=== PATIENT | male | born 1985 | race Caucasian/White ===

== ENCOUNTER 2023-12-31 09:13 | Outpatient (CLI) | payer BC, SELFPAY ==
--- OUTSIDE RECORDS SUMMARY | 2023-12-31 09:16 | XMS_ITS | Clinical Summary ---
Author Organization [email or web address] Address [place], [place] [address] Care Team Providers Care Farm Hand Name Role Phone Elise Bernstein MD Primary Care Provider Allergies No known active allergies Medications Medication Sig Dispensed Refills Start Date End Date Status hydrocortisone 1 % ointmentIndications:H emorrhoids, external Apply topically to affected area(s) 2 times daily. 1 Tube 09/14/2019 Active Active Problems No known active problems Resolved Problems Problem Noted Date Diagnosed Date Resolved Date Depression, recurrent 07/02/20162016 Depression with anxiety 09/26/201006/17 Immunizations Name Administration Dates Next Due Tdap 11/19/2011 Social History Tobacco Use Types Packs/Day Years Used Date Smoking Tobacco: Every Day Cigarettes Smokeless Tobacco: Former Chew Tobacco Cessation:Ready to Q uit: Yes; Counseling Given: Yes Alcohol Use Standard Drinks/Week Comments No 0 (1 standard drink = 0.6 oz pur e alcohol) PHQ-2 Answer Date Recorded PHQ-2 TOTAL SCORE 0 09/14/2019 Social Connections Answer Date Recorded Frequency of Communication with Friends and Fami ly Not on file 06/17/2021 Financial Resource Strain Answer Date R ecorded Difficulty of Paying Living Expenses Not on file 06/17/2021 Difficulty of Paying Living Expenses Not on file 06/17/2021 Sex and Gender Information Value Date Recorded Sex Assigned at Not on file Gender Identity Not on file Sexual Orientation Not on file Obstetrics History Last Filed Vital Signs Vital Sign Reading Time Taken Comments Blood Pressure 123/81 09/14/2019 4:34 PM CDT Pulse 69 09/14/2019 4:34 PM CDT Temperature 37.2 ??C (99 ??F) 10/25/2015 3:13 PM CDT Respiratory Rate - - Oxygen Saturation 100% 10/25/2015 3:13 PM CDT Inhaled Oxygen Concentration - - Weight 79.2 kg (174 lb 9.6 oz) 09/14/2019 4:34 P M CDT Height 172.5 cm (5' 7.91) 09/14/2019 4:34 PM CD T Body Mass Index 26.62 09/14/2019 4:34 PM CDT Plan of Treatment Health Maintenance Due Date Last Done Comments HIV for age 15-65 1999 Hepatitis C screening for age 18-79 2002 Lipids for age 35-44 2019 BMI (ht and wt on same day) for age 18+ 09/13/2020 09/14/2019, 03/31/2018, 10/10/2016, Additional history exists Depression screening for age 12+ 09/13/2020 09/14/2019, 10/10/2016, 07/02/2016, Additional history exists Tetanus booster 11/18/2021 11/19/2011 COVID-19 vaccine series ( season) 2023 Influenza for age 9-49 02/16/2024 Tdap Completed 11/19/2011 Pneumococcal series for age 6-64 Aged Out No longer eligible based on patient's age to complete this topic Care Teams Farm Hand Relationship Specialty [place] [id number] [place], [place] [phone] PCP - General Family Practice 10/25/15
== END 2023-12-31 09:14 | disposition home or self-care (01) ==
PROVIDERS: PCP Family Medicine; Visit Provider Family Medicine
DX: Z13.220 Encounter for screening for lipoid disorders (principal); Z13.1 Encounter for screening for diabetes mellitus
CPT/HCPCS: 80061; 82947

== ENCOUNTER 2024-03-19 19:51 | Emergency (ER) | payer BC, SELFPAY ==
[2024-03-19 20:10] VITALS: BP 127/78; PULSE 102; RESP 16; TEMP 36.8; O2SAT 94; BMI 27.3
--- NOTE | 2024-03-19 20:23 | CRLHL7_ITS ---
For Patients: As a result of the Cures Act, medical imaging exams and procedure reports are released immediately into your electronic medical record. You may view this report before your referring provider. If you have questions, please contact your health care provider. INDICATION: Cough. COMPARISON: None available. TECHNIQUE: 2 views. FINDINGS: Medical Devices: None. Lung Volumes: Adequate inspiration. No significant atelectasis. Lungs: Asymmetrical medial right basilar opacity on the frontal view of the chest without a definite correlate on the lateral view suspicious for pneumonia in the correct clinical setting. This could be present within the right lower lobe as there is subtle increased opacity over the lower thoracic spine on the lateral view. Short interval follow-up is suggested to document resolution in 6-8 weeks. Pleura and Pleural spaces: No significant pleural effusion. No pneumothorax. Mediastinum: Normal cardiomediastinal silhouette. Bony Thorax and Soft Tissues: No significant incidental findings. IMPRESSION: Asymmetrical medial right basilar opacity on the frontal view of the chest without a definite correlate on the lateral view suspicious for pneumonia in the correct clinical setting. This could be present within the right lower lobe as there is subtle increased opacity over the lower thoracic spine on the lateral view. Short interval follow-up is suggested to document resolution in 6-8 weeks. Dictated by Herson Gonzalez MD @ 03/19/2024 8:58:52 PM (Electronically Signed)
--- NOTE | 2024-03-19 20:36 | ED.GENADULT ---
HPI - General Adult General Date Seen: 03/19/24 Chief complaint: Cough Stated complaint: cough Time Seen by Provider: 03/19/24 20:18 Source: patient Mode of arrival: ambulatory Limitations: no limitations History of Present Illness HPI narrative: Patient is a 38-year-old here at the insistence of his for evaluation of cough which he has had for about a week. He says he was running some low-grade fevers but that is resolved. No chest pain or shortness of breath he feels like his lungs are ?inflamed. He does not have a history of underlying asthma or COPD, does not smoke or vape. He did have an old inhaler from a prior similar illness and he has been using that. General health otherwise good. Related Data Home Medications ?Medication ?Instructions ?Recorded ?Confirmed multivitamin 1 tab PO QDAY 07/16/23 03/19/24 Previous Rx's ?Medication ?Instructions ?Recorded ketoconazole 2 % shampoo 1 applic topical 3XW #120 mL 12/24/23 bupropion HCl 300 mg 24 hr tablet, 300 mg PO QAM #90 tabs 12/31/23 extended release Allergies Allergy/AdvReac Type Severity Reaction Status Date / Time No Known Drug Allergies Allergy Verified 12/31/23 08:20 Review of Systems Status of ROS: Reports: 6 or more systems reviewed and unremarkable except as noted in History and below [facility] Medical History Encounter for pre-operative examination ?Z01.818 - Encounter for other preprocedural examination (ICD-10) Social History What is your current living situation?: I presently have a place to live Problems where you live: no known problems In the past 12 months, utilities in danger of being shut off: no In past 12 months, lack of transportation kept you from medical appts, meetings, work, or getting things needed for daily living: no In the past 12 mos, have been you worried that your food would run out before you had money to buy more?: never true In the past 12 mos, the food you bought just didn't last and you didn't have money to buy more?: never true Smoking Status: Never smoker Non-prescribed substance use: denies use How often does anyone, including family, friends and others, physically hurt you: never How often does anyone, including family, friends and others, insult or talk down to you: rarely How often does anyone, including family, friends and others, threaten you with harm: never How often does anyone, including family, friends and others, scream or curse at you: never Little interest or pleasure in doing things: several days Feeling down, depressed, or hopeless: several days Exam Narrative: Exam Narrative: Vital signs as noted above. In general, an alert, well-appearing patient. Breathing easily. Head: Normocephalic, atraumatic. Eyes: Pupils are equal reactive. Extraocular movements are full. Conjunctivae are normal. ENT: Mucous membranes are moist. Throat is normal. Neck: Supple without lymphadenopathy. Heart: Regular rate and rhythm. No murmur or rub. Lungs: Clear bilaterally. No increased work of breathing, crackles or wheezes. Affect: Normal. Skin: Warm and dry. Well perfused. Const: Vital Signs, click to edit/add: Vital Signs - 24 hr 03/19/24 20:10 Temperature 98.2 F Pulse Rate [Pulse Oximeter] 102 H Respiratory Rate 16 Blood Pressure [Ri ght Upper Arm] 127/78 Pulse Oximetry 94 Oxygen Delivery Me thod Room Air Course Course ED Course: Viral swab is pending. I did order a chest x-ray, discussed with him that barring evidence of pneumonia, overall we will probably need to treat this with supportive care, continue the inhaler, can certainly try him on a short course of prednisone, plus or minus Robitussin with codeine to try and suppress nighttime cough. His is very interested in that as his coughing is keeping her awake. Radiology read of chest x-ray is as follows:Patient: CIRILO BARRETO Facility: [facility] Site . Site : 1984 Study: XRay-Chest 2 view-03/19/2024 8:40:15 PM Ordering Physician: Annie Lutz Final Report: INDICATION: Cough. COMPARISON: None available. TECHNIQUE: 2 views. FINDINGS: Medical Devices: None. Lung Volumes: Adequate inspiration. No significant atelectasis. Lungs: Asymmetrical medial right basilar opacity on the frontal view of the chest without a definite correlate on the lateral view suspicious for pneumonia in the correct clinical setting. This could be present within the right lower lobe as there is subtle increased opacity over the lower thoracic spine on the lateral view. Short interval follow-up is suggested to document resolution in 6-8 weeks. Pleura and Pleural spaces: No significant pleural effusion. No pneumothorax. Mediastinum: Normal cardiomediastinal silhouette. Bony Thorax and Soft Tissues: No significant incidental findings. IMPRESSION: Asymmetrical medial right basilar opacity on the frontal view of the chest without a definite correlate on the lateral view suspicious for pneumonia in the correct clinical setting. This could be present within the right lower lobe as there is subtle increased opacity over the lower thoracic spine on the lateral view. Short interval follow-up is suggested to document resolution in 6-8 weeks. Findings discussed with the patient and his . I would recommend against just cough suppression given this finding, I prescribed doxycycline, he can continue to use the albuterol if he finds it helpful. Primary care follow-up if not improving over the next week, return any time for severe shortness of breath, high fevers, shaking chills, vomiting etcetera. Relayed to him that repeat chest x-ray in 6-8 week should be done through his primary doctor. Vital Signs Vital signs: Initial Vital Signs Temperature 98.2 F 03/19/24 20:10 Temperature Source Temporal Artery Scan 03/19/24 20:10 Pulse Rate 102 H 03/19/24 20:10 Respiratory Rate 16 03/19/24 20:10 Blood Pressure 127/78 03/19/24 20:10 Blood Pressure Mean 94 03/19/24 20:10 Blood Pressure Position Supine 03/19/24 20:10 Pulse Oximetry 94 03/19/24 20:10 Oxygen Delivery Method Room Air 03/19/24 20:10 Vital Signs Temperature 98.2 F 03/19/24 20:10 Pulse Rate 102 H 03/19/24 20:10 Respiratory Rate 16 03/19/24 20:10 Blood Pressure 127/78 03/19/24 20:10 Pulse Oximetry 94 03/19/24 20:10 Oxygen Delivery Method Room Air 03/19/24 20:10 Temperature 98.2 F 03/19/24 20:10 Pulse Rate 102 H 03/19/24 20:10 Respiratory Rate 16 03/19/24 20:10 Blood Pressure 127/78 03/19/24 20:10 Pulse Oximetry 94 03/19/24 20:10 Oxygen Delivery Method Room Air 03/19/24 20:10 Medical Decision Making Lab Data Labs: Lab Results 03/19/24 Range/Units 20:19 SARS-CoV-2 (PCR) Negative SARS-CoV-2 (Negative) Influenza Type A (PCR) Negative PCR FLU A (Negative) Influenza Type B (PCR) Negative PCR FLU B (Negative) RSV (PCR) Negative PCR RSV (Negative) Discharge Plan Discharge Clinical Impression: Pneumonia Patient Disposition: Home, Self-Care Condition: Stable Instructions: Community Acquired Pneumonia (DC) Additional Instructions: Antibiotic as prescribed. The radiologist recommends repeat chest x-ray in 6-8 weeks to make sure that this area has cleared. If you have worsening shortness of breath, high fevers or other significant changes return at any time. Follow-up with primary care if not improved over the next week. Prescriptions: No Action multivitamin Tablet 1 tab PO QDAY bupropion HCl 300 mg tablet extended release 24 hr 300 mg PO QAM Qty: 90 3RF ketoconazole 2 % shampoo 1 applic topical 3XW Qty: 120 5RF Follow Up/Referrals: Tate Comer MD [Primary Care Provider] - Stand Alone Forms: MyHealth Info Instructions
--- OUTSIDE RECORDS SUMMARY | 2024-03-19 20:59 | XMS_ITS | Clinical Summary ---
Author Organization [facility] Address [place], [place] [address] Care Team Providers Care Incinerator Operator Name Role Phone Elise Bernstein MD Primary [...] Tetanus booster 11/18/2021 11/19/2011 COVID-19 vaccine series (2023- season) 2024 Influenza for age 9-49 02/16/2024 Tdap Completed 11/19/2011 Pneumococcal series for age 6-64 Aged Out No longer eligible based on patient's age to complete this topic Care Teams Incinerator Operator Relationship Specialty Start [place] [id number] [place], [place] [phone] PCP - General Family Practice 10/25/15
[2024-03-19 21:00] LABS: PCR FLU A Negative PCR FLU A (Negative); PCR FLU B Negative PCR FLU B (Negative); PCR RSV Negative PCR RSV (Negative); SARS PCR* Negative SARS-CoV-2 (Negative)
== END 2024-03-19 21:17 | disposition home or self-care (01) ==
PROVIDERS: Emergency Provider Emergency Medicine; PCP Family Medicine
DX: J18.9 Pneumonia, unspecified organism (principal)
CPT/HCPCS: 71046; 87631; 99283; 99284

== ENCOUNTER 2024-06-24 11:51 | Outpatient (CLI) | payer BC, SELFPAY | END 2024-06-24 11:52 | disposition home or self-care (01) | LOC: NFLDREF 11:52 | PROVIDERS: PCP Family Medicine; Visit Provider Family Medicine | DX: R21 Rash and other nonspecific skin eruption (principal) | CPT/HCPCS: 80053 ==